=== PATIENT | male | born 1955 | race Caucasian/White ===

== ENCOUNTER 2016-09-26 16:37 | Emergency (ER) | payer BC ==
--- NOTE | 2016-09-26 16:47 | EDM.PDOC ---
ED HPI GENERAL MEDICAL PROBLEM - General Chief Complaint: General Stated Complaint: right leg wound Time Seen by Provider: 09/26/16 16:45 Source of Information: Reports: Patient, EMS, Old records ([facility] chart/EMR) History Limitations: Reports: No limitations - History of Present Illness INITIAL COMMENTS - FREE TEXT/NARRATIVE: The patient was brought to the emergency room via ambulance with cylinder press feeder accompaniment with initial assessment by first responders. Pressure dressing and ice packs were applied by the cylinder press feeder with saline lock also placed. The patient was taking a shower at home after work today at about 15:20 hours when a varicose vein in his right leg spontaneously ruptured with moderate blood loss at that time. He is on Coumadin with no recent change in his medical therapy. He has a known history of moderate bilateral varicose veins of his legs bilaterally, although he has not had any problems with this in the past. No history of injury, fall, etc..The patient denies any chest pain/pressure, heart flutter, dizziness, orthostasis, orthopnea, diaphoresis, paresthesias, recent decreased exercise tolerance, or any other anginal-type symptoms. No recent history of abdominal pain, heartburn, nausea, diarrhea, melena, gross hematochezia, or any food intolerance, including fatty foods, etc.. The patient also denies any recent fever, cough, wheezing, dyspnea, etc.. He denies any pain or discomfort Onset: today, sudden Onset Date: 09/26/16 Onset Time: 15:20 Duration: Constant, Getting worse Location: Reports: lower extremity, right Quality: Reports: Other (No pain) Improves with: Reports: Rest Worsens with: Reports: Movement Context: Reports: Other ( as above) Associated Symptoms: Denies: confusion, chest pain, cough, diaphoresis, fever/ chills, nausea/vomiting, shortness of breath, syncope, weakness Treatments AUTOCUTTER: Reports: Cold therapy, Dressing(s), IV/IO - Related Data Allergies Allergy/AdvReac Type Severity Reaction Status Date / Time No Known Allergies Allergy Verified 09/26/16 16:46 Home Meds: Home Meds Allopurinol [Zyloprim] 100 mg PO DAILY 09/26/16 [History] Lisinopril 10 mg PO DAILY 09/26/16 [History] Metoprolol Succinate [Toprol XL] 50 mg PO QAM 09/26/16 [History] Warfarin [Coumadin] 7.5 mg PO SUTUWETH@1800 09/26/16 [History] Warfarin [Coumadin] 10 mg PO MOWEFR@1800 09/26/16 [History] metFORMIN HCl [Metformin HCl ER] 500 mg PO QPM 09/26/16 [History] metFORMIN HCl [Metformin HCl ER] 750 mg PO QAM 09/26/16 [History] Past Medical History HEENT History: Reports: Impaired vision, Other (see below). Denies: Allergic rhinitis, Glaucoma, Hard of hearing, Macular degeneration, Retinal detachment Other HEENT History: Reading glasses Cardiovascular History: Reports: Afib, Hypertension, Other (see below). Denies : Aneurysm, Arrhythmia, Blood clots/VTE/DVT, CAD, Heart murmur, High cholesterol , HI, Pacemaker, PVD, Syncope Other Cardiovascular History: Moderate varicosities of the lower extremities bilaterally Respiratory History: Reports: COPD, Intubation, previous, Other (see below) ( Probable intubation for previous surgeries as below, COPD by chest x-ray with no current therapy). Denies: Asthma, Intubation, difficult, PE, Pneumothorax, Sleep apnea, TB Gastrointestinal History: Reports: Colon polyp, Hepatitis, Other (see below). Denies: Celiac disease, Cholelithiasis, Chronic constipation, Chronic diarrhea, Diverticulosis, Gastritis, GERD, Hiatal hernia, Inflammatory bowel disease, Irritable bowel syndrome, Jaundice, Pancreatitis, PUD Other Gastrointestinal History: Hepatitis C diagnosed in in about 1995 with no previous therapy and history of intermittent LFTs elevation Genitourinary History: Reports: None. Denies: BPH, Chronic renal insuffiency, Renal calculus, STD, Urinary incontinence, UTI, recurrent Musculoskeletal History: Reports: Arthritis, Fracture, Gout, Osteoarthritis, Other (see below). Denies: Back pain, chronic, Neck pain, chronic, RA, SLE Other Musculoskeletal History: Right tibial and fibular fracture requiring surgery as below 1996, right proximal humeral fracture/shoulder fracture requiring surgery in February 2014 as below Neurological History: Reports: Concussion, Head trauma, Other (see below). Denies: Brain injury, Cerebral aneurysms, CVA, Headaches, chronic, Migraines, MS , Neuropathy, diabetic, Neuropathy, peripheral, Parkinson's, Seizure, TIA Other Neuro History: Minor head concussion on 05/19/11 with brief loss of consciousness and alcohol intoxication Psychiatric History: Reports: Aggressive/hostile behaviors. Denies: Abuse, victim of, ADD, ADHD, Addiction, Anxiety, Dementia, Depression, Psych Hospitalization(s), PTSD, Suicide attempt, Suicidal ideation Endocrine/Metabolic History: Reports: Diabetes, type II, Other (see below). Denies: Diabetes, type I, Hypothyroidism, IDDM Other Endocrine/Metabolic History: Hypokalemia Hematologic History: Reports: None. Denies: Anemia, B12 deficiency, Blood transfusion(s), Iron deficiency Immunologic History: Reports: None. Denies: AIDS, HIV, SLE Oncologic (Cancer) History: Reports: None. Denies: Basal cell carcinoma, Colon , Hodgkin's Lymphoma, Leukemia, Lymphoma, Malignant melanoma, Non-Hodgkin's Lymphoma, Prostate, Squamous cell carcinoma Dermatologic History: Reports: None. Denies: Eczema, Psoriasis - Infectious Disease History Infectious Disease History: Reports: Hepatitis C, Measles. Denies: C-difficile , Chicken pox, Meningitis, Mononucleosis, MRSA, Mumps, Pertussis (whooping cough ), Rheumatic Fever, Rubella, Scarlet fever, Shingles, VRE Other Infectious Disease History: Hepatitis C initially diagnosed in about 1995 as above - Past Surgical History Head Surgeries/Procedures: Reports: None HEENT Surgical History: Reports: Oral surgery, Other (see below). Denies: Adenoidectomy, Cataract surgery, Eye surgery, Laser surgery, LASIK, Myringotomy w tube(s), Naso-sinus surgery, Tonsillectomy Other HEENT Surgeries/Procedures: [place] teeth extraction x2 in upper dentition in about 2007 Cardiovascular Surgical History: Reports: None. Denies: Coronary artery stent, Percutaneous transluminal angioplasty, Varicose, Vascular surgery Respiratory Surgical History: Reports: None. Denies: Lung Biopsies GI Surgical History: Reports: Colonoscopy, Polypectomy, Other (see below). Denies: Appendectomy, Cholecystectomy, EGD, Esophageal dilatation, Hernia, abdominal, Hernia, inguinal, Hernia repair/other Other GI Surgeries/Procedures: Colonoscopy in about 2006 with polypectomy for benign disease Male Surgical History: Denies: Circumcision, TURP-Transurethral resection of prostate, Varicocele resection, Vasectomy Endocrine Surgical History: Reports: None. Denies: Thyroid biopsy Neurological Surgical History: Denies: C-Spine, Discectomy, Laminectomy, Lumbar spine, Spinal fusion, Vertebroplasty Musculoskeletal Surgical History: Reports: Hip replacement, Joint replacement, ORIF, Shoulder surgery, Other (see below). Denies: Arthroscopic knee, Arthroscopic procedure, Carpal tunnel, Ganglion cyst, Knee replacement Other Musculoskeletal Surgeries/Procedures:: ORIF of right tibial fibular fracture with erika placement in 1996, ORIF of proximal right humerus with concomitant shoulder surgery in February 2014, right hip TEP on 01/26/2015 Oncologic Surgical History: Reports: None Dermatological Surgical History: Reports: None - Past Imaging History Past Imaging History: Reports: Ultrasound (Right upper quadrant ultrasound on ) Social & Family History - Family History Cardiac: Reports: CAD, HI, Other (see below). Denies: Heart failure, High cholesterol, Hypertension Other Cardiac Family History: Mother with fatal HI at age 79 Neurological: Reports: Seizure, Other (see below) Other Neurological Family History: Father with unknown type of seizure disorder - Tobacco Use Smoking Status *Q: Current Every Day Smoker Tobacco Use Within Last Twelve Months: Cigarettes Years of Tobacco use: 45 Packs/Tins Daily: 0.3 (Maximum use one pack per day) Smoking Cessation Information Provided To Patient: No Second Hand Smoke Exposure: No - Caffeine Use Caffeine Use: Reports: Energy drinks (One can per day). Denies: Coffee, Soda, Tea - Alcohol Use Alcohol Use History: Yes Days Per Week of Alcohol Use: 2 (DWI in 2003 with no previous history of alcohol abuse, treatment, etc.) Number of Drinks Per Day: 6 (Usually beer) Total Drinks Per Week: 12 Date/Time of Last Drink Comment: About 2-1/2 months ago Alcohol Use in Last Twelve Months: Yes Alcohol Use Frequency: Socially - Recreational Drug Use Recreational Drug Use: No Drug Use in Last 12 Months: No Recreational Drug Type: Denies: Amphetamines (Speed), Cocaine, Heroin, Inhalants (Glues, Solvents, Aerosols), LSD (Acid), Marijuana/Hashish, Methamphetamine, Morphine - Living Situation & Occupation Living situation: Reports: (1989, 2 children), alone Occupation: employed ([employer]) ED ROS GENERAL - Review of Systems Review Of Systems: See Below Constitutional: Reports: no symptoms. Denies: fever, chills, weakness, fatigue , night sweats, diaphoresis HEENT: Reports: No symptoms. Denies: Vertigo, Vision change Respiratory: Reports: No Symptoms. Denies: Shortness of Breath, Wheezing, Pleuritic Chest Pain, Cough Cardiovascular: Reports: No symptoms. Denies: Chest pain, Blood pressure problem, Claudication, Dyspnea on exertion, Edema, Lightheadedness, Orthopnea, Palpitations, Syncope Endocrine: Reports: no symptoms. Denies: fatigue GI/Abdominal: Reports: No symptoms. Denies: Abdominal pain, Anorexia, Black stool, Bloody stool, Constipation, Diarrhea, Decreased appetite, Difficulty swallowing, Distension, Flatus, Hematochezia, Melena, Mucous in stool, Nausea, Vomiting : Reports: no symptoms. Denies: flank pain, frequency, hematuria, incontinence, urgency, urinary retention, other Musculoskeletal: Reports: other (Bleeding from varicose vein site as above). Denies: neck pain, shoulder pain, arm pain, back pain, leg pain Skin: Reports: no symptoms. Denies: pallor, diaphoresis, bruising, pruritis, erythema, wound Neurological: Reports: No Symptoms. Denies: Confusion, Dizziness, Numbness, Paresthesia, Tingling, Weakness Psychiatric: Reports: No symptoms Hematologic/Lymphatic: Reports: no symptoms Immunologic: Reports: no symptoms ED EXAM, GENERAL - Physical Exam Exam: See Below Exam Limited By: No limitations General Appearance: alert, WD/WN, no apparent distress Head: atraumatic, normocephalic Neck: normal inspection, supple, non-tender, full range of motion. No: lymphadenopathy (L), lymphadenopathy (R), thyromegaly Respiratory/Chest: no respiratory distress, lungs clear, normal breath sounds, no accessory muscle use, chest non-tender. No: pleural rub, retractions Cardiovascular: normal peripheral pulses, no edema, no gallop, no JVD, no murmur , no rub, irregularly irregular. No: gallop/S3, gallop/S4 Peripheral Pulses: 2+: radial (L), radial (R), dorsalis pedis (L), dorsalis pedis (R) (Male) Exam: Deferred Rectal (Males) Exam: Deferred Back Exam: normal inspection, full range of motion. No: CVA tenderness (L), CVA tenderness (R), muscle spasm Extremities: normal range of motion, non-tender, no pedal edema, normal capillary refill, other (Moderate bilateral varicosity of the lower extremities with moderate bleeding from varicose vein from medial proximal portion of the right lower leg just below the popliteal area, no evidence of acute injury, local signs of infection, etc.). No: pedal edema, Rambo's Sign, leg pain Neurological: alert, oriented, CN II-XII intact, normal cognition, normal gait, no motor/sensory deficits Psychiatric: normal affect, normal mood Skin Exam: Warm, Dry, Normal color, No rash, Other (As the). No: Diaphoretic, Ecchymosis, Erythema, Pallor, Petechiae, Wound/incision Lymphatic: no adenopathy ED GENERAL MEDICAL PROCEDURES - Laceration/Wound Repair Right Middle Medial Leg Lac/wound length in cm: 0.5 Appearance: superficial Distal NVT: neuro & vascular intact, no tendon injury Anesthetic type: local Local anesthesia - Lidocaine (Xylocaine): 1% plain Local anesthetic volume: other (10 cc) Skin prep: providone-iodine (betadine) Saline irrigation (cc's): 0 Exploration/Debridement/Repair: wound explored, in a bloodless field, explored to base, no foreign material found Closed with: sutures Suture size: 4-0 # of sutures: 2 Suture type: nylon Drain placement: No Sterile dressing applied: nurse Tetanus status addressed: Yes Complications: No Course - Vital Signs Last Recorded V/S: Last Vital Signs Temp 36.9 C 09/26/16 16:48 Pulse 74 09/26/16 16:48 Resp 20 09/26/16 16:48 BP 133/75 09/26/16 16:48 Pulse Ox 99 09/26/16 16:48 Vital Signs - 24 hr 09/26/16 16:48 Temperature [ 36.9 C Oral] Pulse, 74 Peripheral [ Right Pulse Oximetry] Respiratory 20 Rate Blood Pressure 133/75 [Right Upper Arm] O2 Sat by Pulse 99 Oximetry - Orders/Labs/Meds Orders: Active Orders 24 hr Category Date Time Status Durable Medical Equipment for Discharge [DME for Oth 09/26/16 17:34 Ordered Discharge] [COMM] Routine Obtain Past Medical Record [OM.PC] Routine Oth 09/26/16 16:47 Active Labs: Laboratory Tests 09/26/16 09/26/16 09/26/16 Range/Units 16:52 16:52 16:52 WBC 5.8 (4.0-10.2) K/uL RBC 3.70 L (4.33-5.41) M/uL Hgb 10.6 L (13.1-16.8) g/dL Hct 33.0 L (39.0-49.0) % MCV 89.2 (84.0-98.0) fL MCH 28.6 (28.2-33.3) pg MCHC 32.1 (31.7-36.0) g/dL RDW 14.4 H (11.2-14.1) % Plt Count 107 L (150-350) K/uL Neut % (Auto) 67.7 (45.0-80.0) % Lymph % (Auto) 14.6 (10.0-50.0) % Taliaferro % (Auto) 12.5 (2.0-14.0) % Eos % (Auto) 4.5 (0.0-5.0) % Baso % (Auto) 0.7 (0.0-2.0) % Neut # (Auto) 3.96 (1.40-7.00) K/uL Lymph # (Auto) 0.85 (0.50-3.50) K/uL Tal[place]ferro # (Auto) 0.73 (0.00-1.00) K/uL Eos # (Auto) 0.26 (0.00-0.50) K/uL Baso # (Auto) 0.04 (0.00-0.20) K/uL PT 25.4 H (9.8-11.7) SEC INR 2.3 Sodium 136 (136-145) mmol/L Potassium 3.7 (3.5-5.1) mmol/L Chloride 101 (98-107) mmol/L Carbon Dioxide 26.6 (21.0-32.0) mmol/L BUN 14 (7-18) mg/dL Creatinine 0.90 (0.51-1.17) mg/dL Est Cr Clr Drug Dosing 98.94 mL/min Estimated GFR (MDRD) > 60 mL/min Glucose 136 H (74-106) mg/dL Calcium 8.2 L (8.5-10.1) mg/dL Total Bilirubin 2.0 H (0.2-1.0) mg/dL Direct Bilirubin (0.0-0.2) mg/dL Indirect Bilirubin mg/dL AST 58 H (15-37) U/L ALT 62 (12-78) U/L Alkaline Phosphatase 65 (46-116) IU/L Total Protein 7.5 (6.4-8.2) g/dL Albumin 3.4 (3.4-5.0) g/dL 09/26/16 Range/Units 16:52 WBC (4.0-10.2) K/uL RBC (4.33-5.41) M/uL Hgb (13.1-16.8) g/dL Hct (39.0-49.0) % MCV (84.0-98.0) fL MCH (28.2-33.3) pg MCHC (31.7-36.0) g/dL RDW (11.2-14.1) % Plt Count (150-350) K/uL Neut % (Auto) (45.0-80.0) % Lymph % (Auto) (10.0-50.0) % [place]ferro % (Auto) (2.0-14.0) % Eos % (Auto) (0.0-5.0) % Baso % (Auto) (0.0-2.0) % Neut # (Auto) (1.40-7.00) K/uL Lymph # (Auto) (0.50-3.50) K/uL [place]ferro # (Auto) (0.00-1.00) K/uL Eos # (Auto) (0.00-0.50) K/uL Baso # (Auto) (0.00-0.20) K/uL PT (9.8-11.7) SEC INR Sodium (136-145) mmol/L Potassium (3.5-5.1) mmol/L Chloride (98-107) mmol/L Carbon Dioxide (21.0-32.0) mmol/L BUN (7-18) mg/dL Creatinine (0.51-1.17) mg/dL Est Cr Clr Drug Dosing mL/min Estimated GFR (MDRD) mL/min Glucose (74-106) mg/dL Calcium (8.5-10.1) mg/dL Total Bilirubin 2.0 H (0.2-1.0) mg/dL Direct Bilirubin 0.7 H (0.0-0.2) mg/dL Indirect Bilirubin 1.3 mg/dL AST (15-37) U/L ALT (12-78) U/L Alkaline Phosphatase (46-116) IU/L Total Protein (6.4-8.2) g/dL Albumin (3.4-5.0) g/dL Meds: Medications Discontinued Medications Generic Name Dose Route Start Last Admin Trade Name Mauroq PRN Reason Stop Dose Admin Lidocaine HCl 5 ml 09/26/16 16:50 09/26/16 17:06 Xylocaine-Mpf 1% INJECT 09/26/16 16:51 5 ml ONETIME ONE Administration Lidocaine HCl 5 ml 09/26/16 16:50 09/26/16 17:06 Xylocaine-Mpf 1% INJECT 09/26/16 16:51 5 ml ONETIME ONE Administration Neomycin/Polymyxin/Bacitracin 1 each 09/26/16 16:51 09/26/16 17:06 Triple Antibiotic Oint TOP 09/26/16 16:52 1 each ONETIME ONE Administration - Radiology Interpretation Free Text/Narrative:: None Departure - Departure Time of Disposition: 19:00 Disposition: Home, Self-Care 01 Condition: good Clinical Impression: Varicose veins of both lower extremities with complications, Elevated LFTs, Tobacco abuse counseling Anemia Qualifiers: Anemia type: unspecified type Qualified Code(s): D64.9 - Anemia, unspecified Atrial fibrillation Qualifiers: Atrial fibrillation type: chronic Qualified Code(s): I48.2 - Chronic atrial fibrillation Hypertension Qualifiers: Hypertension type: essential hypertension Qualified Code(s): I10 - Essential ( primary) hypertension Hepatitis C Qualifiers: Viral hepatitis chronicity: chronic Hepatic coma status: without hepatic coma Qualified Code(s): B18.2 - Chronic viral hepatitis C Gout Qualifiers: Gout site: unspecified site Gout etiology: idiopathic Chronicity: chronic Presence of tophus: without tophus Qualified Code(s): M1A.00X0 - Idiopathic chronic gout, unspecified site, without tophus (tophi) Instructions: Sutured Wound Care Referrals: June Lopez PA-C [Primary Care Provider] - Forms: ED Department Discharge Additional Instructions: 1. Followup with your regular provider within the next 1-2 days for reevaluation and recommended repeat CBC, comprehensive metabolic panel, and direct and indirect bilirubin. Your INR today was 2.3 2. Sutures should be removed from your right leg in about 7-10 days by your regular provider 3. Antibacterial soap wash/soak with subsequent antibacterial dressing such as Neosporin, etc. as directed 2 times per day until the wound or laceration site completely heals. Keep the area clean and dry with activity restrictions as discussed. 4. Additional Bobcat excuse at followup visit with your regular provider as above 5. Discontinue use of all energy drinks with overall low caffeine intake recommended 6. Stop all tobacco use ALESSANDRA as directed/per provided information and consider contacting Quit LIne, etc.. 7. Limited standing, walking, activity, etc. as discussed until released by your regular provider 8. Recommend thigh high DONNY hose bilaterally in the future - Problem List & Annotations (1) Varicose veins of both lower extremities with complications SNOMED Code(s): 69753203 Code(s): I83.893 - VARICOSE VEINS OF BI LOW EXTREM W [facility] COMPLICATIONS Status: Acute Priority: High Onset Date: 09/26/16 Annotation/Comment:: Spontaneous rupture of varicose vein in the right leg as above with excellent results with ligature by means of 2 nylon sutures as above. Neosporin pressure dressing applied by the nurse. Last tetanus booster on 05/19/11. Bobcat work excuse provided with no work until followup visit with his regular provider as per discharge instructions. Activity restrictions discussed. (2) Atrial fibrillation SNOMED Code(s): 97997362 Code(s): I48.91 - UNSPECIFIED ATRIAL FIBRILLATION Status: Chronic Priority: Medium Annotation/Comment:: Stable by history with no recent anginal complaints. INR therapeutic today Qualifiers: Atrial fibrillation type: chronic Qualified Code(s): I48.2 - Chronic atrial fibrillation (3) Elevated LFTs SNOMED Code(s): 070912757 Code(s): R94.5 - ABNORMAL RESULTS OF LIVER FUNCTION STUDIES Status: Chronic Priority: Medium Annotation/Comment:: Mildly elevated LFTs today likely secondary to his chronic hepatitis C. Note additional elevated total bilirubin and direct bilirubin. Close followup by regular provider as per discharge instructions. No current symptoms at this time (4) Gout SNOMED Code(s): 58289133 Code(s): M10.9 - GOUT, UNSPECIFIED Status: Chronic Priority: Medium Annotation/Comment:: Stable by patient history Qualifiers: Gout site: unspecified site Gout etiology: idiopathic Chronicity: chronic Presence of tophus: without tophus Qualified Code(s): M1A.00X0 - Idiopathic chronic gout, unspecified site, without tophus (tophi) (5) Hepatitis C SNOMED Code(s): 56244416 Code(s): B19.20 - UNSPECIFIED VIRAL HEPATITIS C WITHOUT HEPATIC COMA Status : Chronic Priority: Medium Annotation/Comment:: As above Qualifiers: Viral hepatitis chronicity: chronic Hepatic coma status: without hepatic coma Qualified Code(s): B18.2 - Chronic viral hepatitis C (6) Hypertension SNOMED Code(s): 84943442 Code(s): I10 - ESSENTIAL (PRIMARY) HYPERTENSION Status: Acute Annotation/ Comment:: Blood pressure under good control in the emergency room Qualifiers: Hypertension type: essential hypertension Qualified Code(s): I10 - Essential (primary) hypertension (7) Tobacco abuse counseling SNOMED Code(s): 965887004, 561024137, 709442688 Code(s): Z71.6 - TOBACCO ABUSE COUNSELING Status: Chronic Priority: Medium Annotation/Comment:: Tobacco cessation strongly encouraged with information provided. Patient also cautioned to avoid/discontinue energy drinks in light of his atrial fibrillation, hypertension, etc. - Problem List Review Problem List Initiated/Reviewed/Updated: Yes - My Orders Last 24 Hours: My Active Orders 09/26/16 16:47 Obtain Past Medical Record [OM.PC] Routine 09/26/16 17:34 Durable Medical Equipment for Discharge [DME for Discharge] [COMM] Routine - Assessment/Plan Last 24 Hours: My Active Orders 09/26/16 16:47 Obtain Past Medical Record [OM.PC] Routine 09/26/16 17:34 Durable Medical Equipment for Discharge [DME for Discharge] [COMM] Routine Assessment:: As above Plan: As above. Extensive precautions were given to the patient, who is in agreement with the treatment plan. See Patient Instructions for further treatment and plan.
[2016-09-26] MEDS ORDERED: Bacitracin/Neomycin/Polymyxin B Oint 0.9 GM U/D Packet TOP ONE (16:51)
[2016-09-26 16:54] VITALS: BP 133/75
[2016-09-26 17:12] LABS: CHLORIDE,CL 101 mmol/L (98-107); SODIUM,NA 136 mmol/L (136-145)
== END 2016-09-26 19:00 | disposition home or self-care (01) ==
LOC: LL.ED 16:37
DX: I83.893 Varicose veins of bilateral lower extremities with other complications (principal); D64.9 Anemia, unspecified; I48.2 Chronic atrial fibrillation; I10 Essential (primary) hypertension; B18.2 Chronic viral hepatitis C; M1A.00X0 Idiopathic chronic gout, unspecified site, without tophus (tophi); R94.5 Abnormal results of liver function studies; E11.9 Type 2 diabetes mellitus without complications; F17.210 Nicotine dependence, cigarettes, uncomplicated; Z79.01 Long term (current) use of anticoagulants; Z79.899 Other long term (current) drug therapy; Z96.649 Presence of unspecified artificial hip joint; Z98.890 Other specified postprocedural states
CPT/HCPCS: 12001; 36415; 80053; 82247; 82248; 85025; 85610; 99284